=== PATIENT | male | born 1965 | race Caucasian/White ===

== ENCOUNTER 2019-12-10 21:20 | Emergency (ER) | payer MEDICAID, OTHER ==
[~2019-12-10] VITALS: Ht 180.3 cm; Wt 104.3 kg
[2019-12-10 21:56] VITALS: BP 132/75
== END 2019-12-11 00:15 | disposition home or self-care (01) ==
LOC: ER 21:20
DX: R05 Cough (principal); Z20.828 Contact with and (suspected) exposure to other viral communicable diseases
CPT/HCPCS: 71045; 99284; U0003